=== PATIENT | male | born 1960 | race Caucasian/White ===

== ENCOUNTER 2024-02-20 16:00 | Outpatient (CLI) | payer OTHER | END 2024-02-20 16:01 | disposition home or self-care (01) | LOC: SLEEPLAB 16:00 | PROVIDERS: ATTEND Family Medicine | DX: G47.33 Obstructive sleep apnea (adult) (pediatric) (principal); R53.83 Other fatigue; R06.83 Snoring; G47.00 Insomnia, unspecified | CPT/HCPCS: 95800 ==

== ENCOUNTER 2025-06-28 08:39 | Outpatient (CLI) | payer MEDICARE | END 2025-06-28 08:40 | disposition home or self-care (01) | LOC: SCSMRI 08:39 | PROVIDERS: ATTEND Family Medicine | DX: M47.22 Other spondylosis with radiculopathy, cervical region (principal); M47.25 Other spondylosis with radiculopathy, thoracolumbar region; M51.16 Intervertebral disc disorders with radiculopathy, lumbar region; M25.78 Osteophyte, vertebrae; R93.7 Abnormal findings on diagnostic imaging of other parts of musculoskeletal system; M47.27 Other spondylosis with radiculopathy, lumbosacral region; N28.9 Disorder of kidney and ureter, unspecified | CPT/HCPCS: 72148 ==